=== PATIENT | male | born 1960 | race Caucasian/White ===

== ENCOUNTER 2017-06-11 07:00 | Day surgery (SDC) | payer OTHER ==
[~2017-06-11] VITALS: Ht 165.1 cm; Wt 78.3 kg
[2017-06-11] MEDS ORDERED: PROSTATE MED (07:38)
[2017-06-11] MEDS ORDERED: PRILOSEC (07:38)
[2017-06-11 07:41] VITALS: Ht 165.1 cm; Wt 78.3 kg
[2017-06-11 08:44] VITALS: BP 134/92; PULSE 62; RESP 22
--- NOTE | 2017-06-11 09:21 | OPPN ---
Date/Time of Note Date/Time of Note DATE: 06/11/17 TIME: 09:19 Operative Report Preoperative Diagnosis Screening Positive occult blood in stool Postoperative Diagnosis Internal hemorrhoid Operation/Procedure Performed Colonoscopy Provider: JACOBO KHOURY MD Anesthesia Type: moderate sedation Estimated blood loss: none Transfusion Required: no Specimen: none Grafts/Implants: none Complications: no JACOBO KHOURY MD Jun 11, 2017 09:21
[2017-06-11] MEDS ORDERED: FENTAnyl 50 MCG/ML VIAL ONE (09:24)
[2017-06-11] MEDS ORDERED: MIDAZOLAM 1 MG/ML 2 ML INJ ONE ×2 (09:24)
--- NOTE | 2017-06-11 11:00 | GILP ---
DATE OF PROCEDURE: 06/11/2017 PREOPERATIVE DIAGNOSES: 1. Screening colonoscopy. 2. Positive occult blood in stool. POSTOPERATIVE DIAGNOSES: 1. Colonoscopy all the way to the cecum. 2. Internal hemorrhoids. 3. No colon neoplasm was identified. PROCEDURE: Colonoscopy. SURGEON: Moises Ruelas MD INDICATION: Mr. Chu Elias is a 57-year-old male patient who was scheduled for screening colonoscopy. He had positive occult blood in stool. The procedure and possible complications were well explained to the patient. He understood and consented to the procedure. DESCRIPTION OF PROCEDURE: Under influence of fentanyl and Versed, the colonoscope was carefully introduced the rectum. Under direct vision, it was advanced all the way to the cecum. FINDINGS: The patient had internal hemorrhoids. No colon neoplasm was identified. He tolerated the procedure very well. There was no complication from the procedure. At the end of procedure, he was awake with stable vital signs and he was discharged home in the care of his family. IMPRESSION: 1. Colonoscopy all the way to the cecum. 2. Internal hemorrhoids. 3. No colon neoplasm was identified. PLAN: Next screening colonoscopy in 10 years. Dictated By: MD KOFI Bazzi/caleb/ce /Document#: [id number]
== END 2017-06-11 15:02 | disposition home or self-care (01) ==
LOC: GIL 07:00
PROVIDERS: ATTEND Internal Medicine Gastroenterology
DX: Z12.11 Encounter for screening for malignant neoplasm of colon (principal); K64.8 Other hemorrhoids
CPT/HCPCS: 45378; J2250; J3010